=== PATIENT | female | born 1985 | race Caucasian/White ===

== ENCOUNTER 2021-09-01 12:30 | Emergency (ER) | payer OTHER ==
[~2021-09-01] VITALS: Ht 157.5 cm; Wt 76.9 kg
--- OUTSIDE RECORDS SUMMARY | 2021-09-01 12:36 | XMS ---
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 Eddie has no Care Guidelines for this patient. [place] VISIT COUNT (12 MO.) 1 REYNA Starks TOTAL 1 NOTE: Visits indicate total known visits. ED/C VISIT TRACKING (12 MO.) 09/01/2021 12:34 REYNA Guerrero OR TYPE: Emergency COMPLAINT: - SKIN PROBLEM INPATIENT VISIT TRACKING (12 MO.) No inpatient visits to display in this time frame [id number]
[2021-09-01] MEDS ORDERED: LISINOPRIL10 MG PO (12:55)
[2021-09-01] MEDS ORDERED: VYVANSE50 MG PO (12:56)
[2021-09-01] MEDS ORDERED: BUSPIRONE HCL10 MG PO (12:56)
[2021-09-01] MEDS ORDERED: PROPRANOLOL HCL20 MG PO (12:58)
[2021-09-01] MEDS ORDERED: PREDNISONE20 MG PO (14:02)
== END 2021-09-01 14:15 | disposition home or self-care (01) ==
LOC: ED 12:30
DX: L03.314 Cellulitis of groin (principal)
CPT/HCPCS: 10160; 99283-25